=== PATIENT | male | born 1955 | race Caucasian/White ===

== ENCOUNTER 2017-01-19 20:58 | Inpatient (IN) | payer BC ==
--- NOTE | ~2017-01-19 | HP ---
History And Physical [facility] [address] [place]. [address] NAME: CHANTEL LOMELI : 51 STATUS : ADM IN [facility]#: [id number] AGE: 61 ADM/REG DATE : 01/20/17 MR#: [id number] REPORT SERV DATE: 01/20/17 DICTATED BY: EM CAGLE DATE: 01/20/17 REPORT STATUS : Draft TRANSCRIBED BY: MODL DATE: 01/20/17 DATE OF ADMISSION: 01/20/2017 CHIEF COMPLAINT: A 61-year-old male presenting with chest pain, shortness of breath, and light headedness. HISTORY OF PRESENT ILLNESS: The patient's history was obtained through careful interview with the patient, coupled with review of [facility] and [facility] medical records. The patient has been doing quite a bit of travel recently in his car. There have been multiple family emergencies apparently over about the last six weeks. He has made extensive travel to some family 300 to 400 miles away and then had to go to [facility] over the last week or two and then just over this last weekend had to do some traveling up to [place]. He was actually driving back from [place] en route to the [facility] when he developed this chest pain, new onset. He describes it as a middle chest, left greater than right, without significant radiation, a heaviness quality with "jabs," 10/10 severity. He had associated shortness of breath and lightheadedness. No cough. He felt a slight numbness in his lips. He felt no initial nausea and vomiting, but then, when he came to the emergency department, he developed significant vomiting episode. He admits his diabetes is poorly controlled with most blood sugars over 200. No leg symptoms. No lower extremity edema. No abdominal pain. No headache. No cough. No fevers or chills. He states that about a month ago he developed "the flu," and he has lost about 17 pounds in about this last six weeks. REVIEW OF SYSTEMS: Otherwise, a 14-point review of systems was obtained and was negative. PAST MEDICAL HISTORY: 1. Diabetes. 2. Prostate cancer, status post surgery, first diagnosed about six years ago, followed by Dr. Wilburn. 3. Gastroesophageal reflux disorder with gastritis. 4. Hypertension. 5. Von Willebrand with significant bleeding problems in the past. 6. Nephrolithiasis. 7. No cardiac disease. 8. No lung disease. PAST SURGICAL HISTORY: History And Physical [address] [address] NAME: CHANTEL LOMELI : 51 STATUS : ADM IN PAT#: [id number] AGE: 61 ADM/REG DATE : 01/20/17 MR#: [id number] REPORT SERV DATE: 01/20/17 DICTATED BY: EM CAGLE DATE: 01/20/17 REPORT STATUS : Draft TRANSCRIBED BY: DELMA DATE: 01/20/17 1. Prostatectomy. 2. Vasectomy. 3. Left clavicle surgery. ALLERGIES: ASPIRIN AND PENICILLIN. SOCIAL HISTORY: He is . is in good health but has diabetes. He works as an electrical system specialist. He also works with the [employer]. He has children. No tobacco abuse. No alcohol abuse. FAMILY HISTORY: 1. Mother, sisters, and son all with von Willebrand. 2. Coronary artery disease, prostate cancer. Grandfather with blood clot. CURRENT MEDICATIONS: Include eyedrops, vitamin C, vitamin D, multivitamin, fish oil, Janumet twice a day, and valsartan 320 mg p.o. daily. PHYSICAL EXAMINATION: VITAL SIGNS: Temperature 98.2, pulse 123 blood pressure 131/94, respiratory rate 20, and O2 saturation 93% on room air. GENERAL: A pleasant cooperative male. He does not appear in particular distress at this time. HEENT: Pupils equal, round, and reactive to light. No conjunctival pallor. No scleral icterus. Nares are patent. Oropharynx is clear of obstruction. Moist mucous membranes. NECK: Trachea midline. No thyromegaly. LYMPH: No cervical lymphadenopathy. No supraclavicular lymphadenopathy. RESPIRATORY: Clear to auscultation at bases. No wheezes, rales, or rhonchi. Normal respiratory effort. CARDIOVASCULAR: Tachycardic. Regular rhythm. No murmurs, rubs, or gallops. No extremity edema is appreciated at this time. ABDOMEN: Soft, nontender, nondistended. Normal bowel sounds auscultated throughout. No hepatosplenomegaly. DERMATOLOGIC: Warm and dry extremities. No pallor. No cyanosis. PSYCHIATRIC: Normal affect. Good mood. Alert and oriented x3. LABORATORY DATA: Troponin negative. Lipase 312. Lactic acid 3.9. Liver enzymes within normal limits. White blood cell count 18.1, hemoglobin 17, hematocrit 45, and platelets 275. Sodium 136, potassium 4.3, chloride 98, bicarb 24, BUN 20, creatinine 0.09, glucose 258. Urinalysis shows no evidence of infection, but 4 hyaline casts. STUDIES: 1. Chest x-ray by my own evaluation shows no acute cardiopulmonary process. 2. EKG by my own evaluation shows sinus tachycardia. 3. CT scan of the abdomen shows distention of the stomach. ASSESSMENT AND PLAN: 1. Chest pain. I do believe the patient has significant risk for pulmonary embolism with History And Physical [address] [address] NAME: CHANTEL LOMELI : 51 STATUS : ADM IN [facility]#: [id number] AGE: 61 ADM/REG DATE : 01/20/17 MR#: [id number] REPORT SERV DATE: 01/20/17 DICTATED BY: EM CAGLE DATE: 01/20/17 REPORT STATUS : Draft TRANSCRIBED BY: DELMA DATE: 01/20/[address] Check [address] angiogram of the chest. Check an echocardiogram. Consider stress test (?). 2. Systemic inflammatory response syndrome, tachycardia, tachypnea, and white blood cell count of 18.1. We will start empiric IV antibiotics tonight. Obtain Infectious Disease consult. Negative urinalysis. Negative chest x-ray. Negative CT scan of the abdomen. 3. Lactic acidosis. Quite striking. Seems to be out of proportion to the patient's presentation, but we will place on IV fluids, follow closely, and provide supportive care. 4. Uncontrolled diabetes. Add Levemir. Place on sliding scale insulin. Check hemoglobin A1c. Obtain a community educator consult. 5. Von Willebrand disease. Holding aspirin and Plavix for now. KPL/MODL Em Cagle M.D. / [id number] CC: Ga Bajwa M.D. Misael Scruggs MD
--- NOTE | ~2017-01-19 | DS ---
Discharge Summary [facility] [address] [place]. [address] NAME: CHANTEL LOMELI : 51 STATUS : DIS IN PAT#: [id number] AGE: 61 ADM/REG DATE : 01/20/17 MR#: [id number] REPORT SERV DATE: 01/22/17 DICTATED BY: CHERELLE HOWARD DATE: 01/21/17 REPORT STATUS : Draft TRANSCRIBED BY: MODL DATE: 01/21/17 ADMISSION DATE: 01/20/2017 DISCHARGE DATE: 01/21/2017 PRINCIPAL DIAGNOSIS: Clostridium difficile. SECONDARY DIAGNOSES: 1. Chest pain due to . 2. Lactic acidosis. 3. Type 2 diabetes. 4. History of von Willebrand disease. HISTORY OF PRESENT ILLNESS: Please see Dr. Olivera's dictation on 01/19/2017. HOSPITAL COURSE: Admitted with chest pain following a prolonged car trip, was concerned about pulmonary embolus, however, that was negative. Troponin I were negative. Elevated white count, leukocytes were noted. Antibiotics were given with unclear source of infection, however, that was soon revealed the following day when he started having large volumes of watery diarrhea. Stool was in fact positive for C. diff. Levaquin was obviously discontinued. He was changed over to oral vancomycin with improvement in his stool symptoms. Meanwhile, chest pain was excluded for being cardiac with a nuclear medicine stress test with 10 metabolic equivalents of activity being done on the treadmill, and it was felt that he was satisfactory from a cardiac standpoint. He also felt stable to take p.o. and was able to be released from a GI standpoint as well and went home in good condition with diet as tolerated. Continuing 125 mg q.i.d. for 2 weeks. He resumed his home Janumet, Pitman-3 fatty acids, multivitamin. He will follow up with Dr. Misael Scruggs in one to two weeks. CHRISTIAN/DELMA Cherelle Howard M.D. / [id number] CC: Carmine Whitney MD
[2017-01-19 20:43] LABS: BASOPHILS 0.2 %; BASOPHILS ABSOLUTE 0.04 10/3/uL (0.0-0.16); EOSINOPHILS 0.3 %; EOSINOPHILS ABSOLUTE 0.06 10/3/uL (0.0-0.53); IMMATURE GRANULOCYTES 0.3 %; IMMATURE GRANULOCYTES ABSOLUTE 0.05 10/3/uL (0.0-0.11); LYMPHOCYTES 5.2 %; LYMPHOCYTES ABSOLUTE 0.95 10/3/uL (0.67-4.30); MEAN CORPUS HGB CONC 37.3 g/dL (32.0-36.0); MEAN CORPUSCULAR HEMOGLOB 31.1 pg (26.0-34.0); MEAN CORPUSCULAR VOLUME 83.2 fL (80-100); MEAN PLATELET VOLUME 10.3 fL (9.2-13.0); MONOCYTES 6.6 %; NEUTROPHILS 87.4 %; NEUTROPHILS ABSOLUTE 15.81 10/3/uL (2.02-8.40); PLATELET COUNT 275 10/3/uL (150-400); RBC DISTRIBUTION WIDTH 13.3 % (12.0-16.0); RED CELL COUNT 5.41 10/6/uL (4.7-6.1)
[2017-01-19 20:47] LABS: ER CBC TAT 0 Hrs 08 Mins; HEMOGLOBIN 16.8 g/dL (13.6-17.8); MANUAL DIFF NO %; WHITE BLOOD CELLS 18.1 10/3/uL (4.5-10.5)
[2017-01-19 20:51] LABS: INTERNATIONAL NORMAL RATI 1.1 UNITS (-); PARTIAL THROMBO TIME 25.1 SEC (22.5-37.2); PROTIME (NOT ORD) 14.1 SEC (12.0-14.5)
[~2017-01-19 20:58] MED LIST: ASAB PO; DIOVAN320 MG PO; FORTAMET500 MG PO; JANUMET1 TA1 PO; MULTIPLE VIT PO; NORCO1 TA1 PO; SAW PALMETTO; STARLIX120 PO
[2017-01-19 21:01] LABS: ALBUMIN 4.5 G/DL (3.5-5.0); ALKALINE PHOSPHATASE 94 U/L (45-117); CALCIUM, SERUM 9.5 MG/DL (8.5-10.4); CHEST PAIN PROFILE TAT 0 Hrs 22 Mins; CHLORIDE, SERUM 98 MMOL/L (96-112); CO2 (CARBON DIOXIDE) 24 MMOL/L (24-34); CREATININE 1.09 MG/DL (0.70-1.30); DIRECT BILIRUBIN 0.2 MG/DL (0.0-0.4); GFR AFRICAN AMERICAN 83 ML/MIN (>=60); GFR NON AFRICAN AMERICAN 72 ML/MIN (>=60); INDIRECT BILIRUBIN(NOT ORDER) 0.7 MG/DL (0.1-0.9); POTASSIUM, SERUM 4.3 MMOL/L (3.5-5.3); SGOT(AST) 16 U/L (5-40); SGPT(ALT) 36 U/L (5-65); SODIUM, SERUM 136 MMOL/L (135-148); TOTAL BILIRUBIN 0.9 MG/DL (0-1.2); TOTAL PROTEIN 8.8 G/DL (6.0-8.5); TROPONIN I <0.02 NG/ML (<0.05)
[2017-01-19 21:02] LABS: BUN (BLOOD UREA NITROGEN) 20 MG/DL (6-23); GLUCOSE, SERUM 258 MG/DL (60-99)
[2017-01-19] MEDS ORDERED: FISH-EPA1000 MG PO (21:53)
[2017-01-19] MEDS ORDERED: JANUMET XR 50-1 EAC1 PO (21:53)
[2017-01-19] MEDS ORDERED: VITAMIN D31000 UNIT PO (21:53)
[2017-01-19] MEDS ORDERED: THERGRANM PO (21:54)
[2017-01-19] MEDS ORDERED: VITC500 PO (21:54)
[2017-01-19] MEDS ORDERED: TEARS PLUS OPH (21:55)
[2017-01-19 22:19] LABS: LACTATE 3.9 MMOL/L (0.3-2.4)
[2017-01-19 23:13] LABS: ASCORBIC ACID (UR NOT ORDER) 40 (NEG); BILIRUBIN, URINE NEGATIVE (NEG); ER URINALYSIS TAT 0 Hrs 00 Mins; KETONE, URINE 80 MG/DL (NEG); LEUKOCYTE ESTERASE(NOT OR NEG (NEG); NITRITE (URINE) NEG (NEG); WBC (NOT ORDERED) (RFLEX) 1 (0-5)
[2017-01-20 04:24] LABS: BASOPHILS 0.1 %; BASOPHILS ABSOLUTE 0.01 10/3/uL (0.0-0.16); EOSINOPHILS 0 %; HEMOGLOBIN 14.3 g/dL (13.6-17.8); IMMATURE GRANULOCYTES 0.3 %; IMMATURE GRANULOCYTES ABSOLUTE 0.03 10/3/uL (0.0-0.11); LYMPHOCYTES ABSOLUTE 0.33 10/3/uL (0.67-4.30); MEAN CORPUS HGB CONC 35.8 g/dL (32.0-36.0); MEAN CORPUSCULAR HEMOGLOB 30.2 pg (26.0-34.0); MEAN CORPUSCULAR VOLUME 84.4 fL (80-100); MEAN PLATELET VOLUME 10.5 fL (9.2-13.0); MONOCYTES 4.7 %; MONOCYTES ABSOLUTE 0.52 10/3/uL (0.21-1.20); NEUTROPHILS 91.9 %; PLATELET COUNT 212 10/3/uL (150-400); RBC DISTRIBUTION WIDTH 13.2 % (12.0-16.0); RED CELL COUNT 4.73 10/6/uL (4.7-6.1); WHITE BLOOD CELLS 11.1 10/3/uL (4.5-10.5)
[2017-01-20 04:29] LABS: HEMATOCRIT 39.9 % (40.0-51.0); MANUAL DIFF NO %
[2017-01-20 04:49] LABS: INTERNATIONAL NORMAL RATI 1.2 UNITS (-); PROTIME (NOT ORD) 15.5 SEC (12.0-14.5)
[2017-01-20 04:50] LABS: A/G RATIO 0.9 (0.7-1.9); ALBUMIN 3.5 G/DL (3.5-5.0); ALKALINE PHOSPHATASE 70 U/L (45-117); BUN (BLOOD UREA NITROGEN) 26 MG/DL (6-23); CALCIUM, SERUM 8.2 MG/DL (8.5-10.4); CHLORIDE, SERUM 102 MMOL/L (96-112); CO2 (CARBON DIOXIDE) 23 MMOL/L (24-34); CREATININE 1.28 MG/DL (0.70-1.30); GFR AFRICAN AMERICAN 69 ML/MIN (>=60); GFR NON AFRICAN AMERICAN 59 ML/MIN (>=60); GLOBULIN 3.7 G/DL (2.5-4.1); GLUCOSE, SERUM 313 MG/DL (60-99); POTASSIUM, SERUM 4.7 MMOL/L (3.5-5.3); SGOT(AST) 12 U/L (5-40); SGPT(ALT) 27 U/L (5-65); SODIUM, SERUM 134 MMOL/L (135-148); TOTAL BILIRUBIN 1.1 MG/DL (0-1.2); TOTAL PROTEIN 7.2 G/DL (6.0-8.5); TROPONIN I <0.02 NG/ML (<0.05); ULTRASENSITIVE TSH 0.668 MCIU/ML (0.358-3.740)
[2017-01-20 04:59] LABS: PROCALCITONIN 0.48 ng/mL (<0.5)
[2017-01-20 05:04] LABS: B NATRIURETIC PEPTIDE (BNP) 12.6 PG/ML (< 100.0)
[2017-01-21 06:14] LABS: BASOPHILS 0.5 %; BASOPHILS ABSOLUTE 0.02 10/3/uL (0.0-0.16); EOSINOPHILS 2.4 %; EOSINOPHILS ABSOLUTE 0.09 10/3/uL (0.0-0.53); HEMOGLOBIN 13.7 g/dL (13.6-17.8); IMMATURE GRANULOCYTES 0.3 %; IMMATURE GRANULOCYTES ABSOLUTE 0.01 10/3/uL (0.0-0.11); LYMPHOCYTES 19.6 %; LYMPHOCYTES ABSOLUTE 0.73 10/3/uL (0.67-4.30); MEAN CORPUS HGB CONC 36.1 g/dL (32.0-36.0); MEAN CORPUSCULAR HEMOGLOB 30.6 pg (26.0-34.0); MEAN CORPUSCULAR VOLUME 84.8 fL (80-100); MEAN PLATELET VOLUME 9.9 fL (9.2-13.0); MONOCYTES ABSOLUTE 0.52 10/3/uL (0.21-1.20); NEUTROPHILS 63.2 %; NEUTROPHILS ABSOLUTE 2.35 10/3/uL (2.02-8.40); PLATELET COUNT 158 10/3/uL (150-400); RBC DISTRIBUTION WIDTH 13.3 % (12.0-16.0); RED CELL COUNT 4.48 10/6/uL (4.7-6.1)
[2017-01-21 06:16] LABS: MANUAL DIFF NO %; WHITE BLOOD CELLS 3.7 10/3/uL (4.5-10.5)
[2017-01-21 06:34] LABS: BUN (BLOOD UREA NITROGEN) 12 MG/DL (6-23); CALCIUM, SERUM 7.8 MG/DL (8.5-10.4); CHLORIDE, SERUM 106 MMOL/L (96-112); CHOL/HDL RATIO(NOT ORDER) 4.4 (0-5); CHOLESTEROL 146 MG/DL (< 200); CO2 (CARBON DIOXIDE) 21 MMOL/L (24-34); CREATININE 0.66 MG/DL (0.70-1.30); GFR AFRICAN AMERICAN 119 ML/MIN (>=60); GFR NON AFRICAN AMERICAN 103 ML/MIN (>=60); GLUCOSE, SERUM 181 MG/DL (60-99); HDL CHOLESTEROL 33 MG/DL (> 39); LDL CHOLESTEROL 83 MG/DL (< 130); NON-HDL CHOLESTEROL 113 MG/DL (< 160); POTASSIUM, SERUM 3.8 MMOL/L (3.5-5.3); SODIUM, SERUM 138 MMOL/L (135-148); TRIGLYCERIDE 154 MG/DL (< 150)
[2017-01-21 07:08] LABS: PROCALCITONIN 0.24 ng/mL (<0.5)
[2017-01-21 07:42] LABS: SED RATE 8 MM/HR (0-15)
[2017-01-21] MEDS ORDERED: VANCOMYCIN PO (14:24)
== END 2017-01-21 17:58 | disposition home or self-care (01) | DRG 372 ==
LOC: ER 20:58 → 1SO 01-20 00:06
PROVIDERS: Emergency Medicine; Hospitalist; Internal Medicine; Specialist
DX: A04.7 Enterocolitis due to Clostridium difficile (principal); E87.2 Acidosis; R65.10 Systemic inflammatory response syndrome (SIRS) of non-infectious origin without acute organ dysfunction; D68.0 Von Willebrand disease; E11.65 Type 2 diabetes mellitus with hyperglycemia; K21.9 Gastro-esophageal reflux disease without esophagitis; I10 Essential (primary) hypertension; Z79.84 Long term (current) use of oral hypoglycemic drugs; Z79.899 Other long term (current) drug therapy; Z85.46 Personal history of malignant neoplasm of prostate; Z87.442 Personal history of urinary calculi; Z88.0 Allergy status to penicillin; Z88.6 Allergy status to analgesic agent
CPT/HCPCS: 71020; 71275; 74176; 78452; 80048; 80053; 80061; 80076; 81001; 82272; 82962; 83036; 83605; 83690; 83735; 83880; 84145; 84443; 84484; 85025; 85610; 85652; 85730; 87045; 87046; 87046-59; 87493; 87493-59; 87899; 87899-59; 89055; 93005; 93017; 96374; 99285; A9270-GY; A9502; C9113; J1956; J2405; Q9967